=== PATIENT | female | born 1990 | race Caucasian/White ===

== ENCOUNTER 2018-04-01 14:29 | Emergency (ER) | payer OTHER ==
[~2018-04-01] VITALS: Ht 167.6 cm; Wt 108.4 kg
[2018-04-01 14:35] VITALS: Ht 167.6 cm; Wt 108.4 kg
[2018-04-01 16:33] LABS: BASOPHIL % 0.5 % (0-2); PLATELET COUNT 405 x10^3mcL (130-400)
[2018-04-01 17:28] LABS: ALBUMIN 3.9 g/dL (3.4-5.0); ALKALINE PHOSPHATASE 71 U/L (46-116); ALT/SGPT 55 U/L (14-59); AST/SGOT 35 U/L (15-37); BILIRUBIN TOTAL 0.23 mg/dL (0.20-1.00); CALCIUM 9.7 mg/dL (8.5-10.1); CARBON DIOXIDE 31.9 mmol/L (21-32); CHLORIDE SERUM 105 mmol/L (98-107); CREATININE SERUM 0.7 mg/dL (0.6-1.0); GFR1 > 60 mL/min; GLUCOSE SERUM 80 mg/dL (74-106); LIPASE 86 IU/L (73-393); POTASSIUM SERUM 4.5 mmol/L (3.5-5.1); SODIUM SERUM 144 mmol/L (136-145)
[2018-04-01 17:33] LABS: TOTAL PROTEIN, SERUM 8.4 g/dL (6.4-8.2)
[2018-04-01 17:53] VITALS: BP 130/72
== END 2018-04-01 17:53 | disposition home or self-care (01) ==
LOC: ED 14:29
PROVIDERS: Emergency Medicine
DX: R10.13 Epigastric pain (principal); B37.3 Candidiasis of vulva and vagina
CPT/HCPCS: J1885